=== PATIENT | male | born 1990 | race Caucasian/White ===

== ENCOUNTER → 2016-10-16 | Outpatient (CLI) | payer OTHER ==
[~2016-10-16] VITALS: Ht 175.3 cm; Wt 79.5 kg
[~2016-10-16] MED LIST: ALBU18HF2 ORAL INH; ERYT1OIN6 BOTH EYES; INHALER ASSIST DEVICE (Optichamber) MC ONE; MULT1TAB69 PO
== END ==
LOC: RC 12:17
PROVIDERS: ATTEND Internal Medicine
DX: J45.909 Unspecified asthma, uncomplicated (principal); J98.8 Other specified respiratory disorders
CPT/HCPCS: 94060; 94726